=== PATIENT | female | born 1960 | race Two or more races ===

== ENCOUNTER 2016-10-22 20:23 | Emergency (ER) | payer SELFPAY ==
[2016-10-22 21:49] LABS: URINE BILIRUBIN NEGATIVE (NEGATIVE); URINE BLOOD NEGATIVE (NEGATIVE); URINE GLUCOSE (UA) NEGATIVE (NEGATIVE); URINE KETONE NEGATIVE (NEGATIVE); URINE PROTEIN NEGATIVE (NEGATIVE); URINE UROBILINOGEN 0.2 E.U./dL (0.2 - 1.0)
[2016-10-22 21:51] LABS: URINE COLOR STRAW
[2016-10-22 21:52] LABS: URINE BACTERIA NONE SEEN /hpf (NONE SEEN); URINE EPITHELIAL CELLS NONE SEEN /lpf (FEW); URINE RBC NONE SEEN /hpf (0-5); URINE WBC NONE SEEN /hpf (0-5)
--- NOTE | 2016-10-22 22:16 | ED Physician Chart ---
Chief Complaint/HPI - Patient Information Date Seen:: 10/22/16 Time Seen:: 22:10 Chief Complaint:: urinary discomfort History of Present Illness:: pt was dxd w a uti 1.5 wks ang and pmd rxd bactrim ds. pt had mild dysuria and u frequency at that time. she doesnt like pills and so didnt take the bactrim regularly...she felt worse x 2d and decided to restart the bactrim. she now feels only u freq no dysuria. no abd p. no back p. no cp. no uri sx. pt otw fairly healthy no chidi pmh she has not had fevers. no n/v/d. pt has not been sexually active in yrs. no vag d/c. no perineal rash. Allergies:: Allergies Allergy/AdvReac Type Severity Reaction Status Date / Time No Known Allergies Allergy Verified 10/22/16 20:45 Vitals:: Vital Signs - 8 hr 10/22/16 10/22/16 20:35 21:57 Temp 98.1 F 97.9 F HR 68 61 RR 18 17 BP 132/64 129/67 O2 Sat % 99 99 Historian:: Patient Review of Systems - Review of Systems General/Constitutional: No fever, No chills, No weight loss, No weakness, No diaphoresis, No edema, No loss of appetite Skin: No skin lesions, No rash, No bruising Head: No headache, No light-headedness Eyes: No loss of vision, No pain, No diplopia ENT: No earache, No nasal drainage, No sore throat, No tinnitus Neck: No neck pain, No swelling, No thyromegaly, No stiffness, No mass noted Cardio Vascular: No chest pain, No palpitations, No PND, No orthopnea, No edema Pulmonary: No SOB, No cough, No sputum, No wheezing GI: No nausea, No vomiting, No diarrhea, No pain, No melena, No hematochezia, No constipation, No hematemesis G/U: No dysuria, Frequency, No hematuria [employer]: No vaginal discharge, No abnormal vaginal bleed, No contraction Musculoskeletal: No bone or joint pain, No back pain, No muscle pain Endocrine: No polyuria, No polydipsia Psychiatric: No prior psych history, No depression, No anxiety, No suicidal ideation Hematopoietic: No bruising, No lymphadenopathy Allergic/Immuno: No urticaria, No angioedema Neurological: No syncope, No focal symptoms, No weakness, No paresthesia, No headache, No seizure, No dizziness, No confusion, No vertigo Past Medical History - Past Medical History Past Medical History: No significant medical hx, Other (uti) Social History: Non Smoker Medication: Reviewed Family Medical History - Family Member Mother History Unknown: Yes Ethnicity: Non- Physical Exam - Physical Examination General/Constitutional: Awake, Well-developed, well-nourished, Alert, No distress, GCS 15, Non-toxic appearing, Ambulatory Other Gen/Cons comments:: no distress. stable. nontoxic. alert. wn/wh. Head: Atraumatic Eyes: Lids, conjuctiva normal, PERRL, EOMI Skin: Nl inspection, No rash, No skin lesions, No ecchymosis, Well hydrated, No lymphadenopathy ENMT: External ears, nose nl, Nasal exam nl, Lips, teeth, gums nl Neck: Nontender, Full ROM w/o pain, No JVD, No nuchal rigidity, No bruit, No mass, No stridor Respiratory: Nl effort/Exclusion, Clear to Auscultation, No Wheeze/Rhonchi/Rales Cardio Vascular: RRR, No murmur, gallop, rubs, NL S1 S2 GI: No tenderness/rebounding/guarding, No organomegaly, No hernia, Normal BS's, Nondistended, No mass/bruits, No McBurney tenderness Other GI comments:: nontender. no masses. pos nabs. no rebound. no aaa. : No CVA tenderness Extremities: No tenderness or effusion, Full ROM, normal strength in all extremities, No edema, Normal digits & nails Neuro/Psych: Alert/oriented, DTR's symmetric, Normal sensory exam, Normal motor strength, Judgement/insight normal, Mood normal, Normal gait, No focal deficits Misc: normal gait, Normal back, No paraspinal tenderness Labs/Radiology/EKG Results - Lab Results Results: Laboratory Tests 10/22/16 20:35 Urine Source CLEAN CATCH Urine Color STRAW Urine Clarity CLEAR Urine pH 6.0 Ur Specific [place] 1.005 Urine Protein NEGATIVE Urine Glucose (UA) NEGATIVE Urine Ketones NEGATIVE Urine Blood NEGATIVE Urine Nitrate NEGATIVE Urine Bilirubin NEGATIVE Urine Urobilinogen 0.2 Ur Leukocyte Esterase NEGATIVE Urine RBC NONE SEEN Urine WBC NONE SEEN Ur Epithelial Cells NONE SEEN Urine Bacteria NONE SEEN ED Septic Shock - . Is Septic Shock (SBP<90, OR Lactate>4 mmol\L) present?: No - <6hrs of presentation: Vital Signs: Vital Signs - 8 hr 10/22/16 10/22/16 20:35 21:57 Temp 98.1 F 97.9 F HR 68 61 RR 18 17 BP 132/64 129/67 O2 Sat % 99 99 Reassessment (Disposition) - Reassessment Reassessment:: unclear why pt has urine dscomfort...may be psychologic from tx noncompliance.. will run u cx and advise pt to drink fluids and cranberry and see pmd in 3 d for u cx result review. this does not sound likely for STD ...d/w pt.. no candidial rash..per pt. pt referred to PMD. may ret if worse. Reassessment Condition:: Unchanged - Diagnosis Diagnosis:: urinary discomfort of uncertain etiology - Aftercare/Follow up Instructions Aftercare/Follow-Up Instructions:: Counseled pt regarding lab results/diagnosis & need follow up - Patient Disposition Discharge/Transfer:: Home Condition at Disposition:: Unchanged ED Discharge Plan - Patient Disposition Admit/Discharge/Transfer: PT DISCHARGED HOME Instructions: Urinary Frequency Additional Instructions: follow up with your primary medical doctor FLAQUITO drink plenty of water to keep urine clear or pale yellow
== END 2016-10-22 22:00 | disposition home or self-care (01) ==
LOC: ER 20:23
DX: R39.89 Other symptoms and signs involving the genitourinary system (principal)
CPT/HCPCS: 81001-TC; Z7502

== ENCOUNTER 2016-12-23 16:32 | Emergency (ER) | payer BC ==
[2016-12-23 17:06] VITALS: BP 140/60
--- NOTE | 2016-12-23 17:43 | ED Physician Chart ---
Chief Complaint/HPI - Patient Information Date Seen:: 12/23/16 Time Seen:: 17:07 Chief Complaint:: HEADACHE History of Present Illness:: THIS IS A 56 YO FEMALE WITH A HEADACHE FOR TWO MONTHS BUT SHE ALSO STARTED TO GET VERY DIZZY TODAY. SHE STATES THAT SHE HAS NOT HAD ANY RECENT HEAD TRAUMA. SHE DENIES DIABETES, HYPERTENSION AND HEART PROBLEMS. SHE DENIES ANY RECENT FEVER OR COUGH. SHE THAT THE PAIN IS 4/10 AND THE PAIN SKIPS AROUND ALL OVER THE HEAD. SHE DENIES SMOKING AND DRINKING. Allergies:: Allergies Allergy/AdvReac Type Severity Reaction Status Date / Time No Known Allergies Allergy Verified 10/22/16 20:45 Vitals:: Vital Signs - 8 hr 12/23/16 17:06 Temp 98.4 F HR 68 RR 17 BP 140/60 O2 Sat % 97 Historian:: Patient Review:: Nurse's Note Reviewed Review of Systems - Review of Systems General/Constitutional: No fever, No chills, No weight loss, No weakness, No diaphoresis, No edema, No loss of appetite Skin: No skin lesions, No rash, No bruising Head: No headache, No light-headedness Eyes: No loss of vision, No pain, No diplopia ENT: No earache, No nasal drainage, No sore throat, No tinnitus Neck: No neck pain, No swelling, No thyromegaly, No stiffness, No mass noted Cardio Vascular: No chest pain, No palpitations, No PND, No orthopnea, No edema Pulmonary: No SOB, No cough, No sputum, No wheezing GI: No nausea, No vomiting, No diarrhea, No pain, No melena, No hematochezia, No constipation, No hematemesis G/U: No dysuria, No frequency, No hematuria Musculoskeletal: No bone or joint pain, No back pain, No muscle pain Endocrine: No polyuria, No polydipsia Psychiatric: No prior psych history, No depression, No anxiety, No suicidal ideation Hematopoietic: No bruising, No lymphadenopathy Allergic/Immuno: No urticaria, No angioedema Neurological: No syncope, No focal symptoms, No weakness, No paresthesia, Headache, No seizure, No dizziness, No confusion, No vertigo Past Medical History - Past Medical History Obtainable: Yes Past Medical History: Arthritis Family History: Heart disease (MOTHER), Diabetes Melitus Social History: Non Smoker, No Alcohol, No Drug Use Surgical History: None Psychiatricy History: None Medication: Reviewed Family Medical History - Family Member Mother History Unknown: Yes Name:: SENDY BAKER Age: 86 Ethnicity: Non- Living Status: Hx Family Coronary Artery Disease: Yes Hx Family Diabetes: Yes Physical Exam - Physical Examination General/Constitutional: Awake, Well-developed, well-nourished, Alert, No distress, GCS 15, Non-toxic appearing, Ambulatory Head: Atraumatic Eyes: Lids, conjuctiva normal, PERRL, EOMI Skin: Nl inspection, No rash, No skin lesions, No ecchymosis, Well hydrated, No lymphadenopathy ENMT: External ears, nose nl, Nasal exam nl, Lips, teeth, gums nl Neck: Nontender, Full ROM w/o pain, No JVD, No nuchal rigidity, No bruit, No mass, No stridor Respiratory: Nl effort/Exclusion, Clear to Auscultation, No Wheeze/Rhonchi/Rales Cardio Vascular: RRR, No murmur, gallop, rubs, NL S1 S2 GI: No tenderness/rebounding/guarding, No organomegaly, No hernia, Normal BS's, Nondistended, No mass/bruits, No McBurney tenderness : No CVA tenderness Extremities: No tenderness or effusion, Full ROM, normal strength in all extremities, No edema, Normal digits & nails Neuro/Psych: Alert/oriented, DTR's symmetric, Normal sensory exam, Normal motor strength, Judgement/insight normal, Mood normal, Normal gait, No focal deficits Misc: normal gait, Normal back, No paraspinal tenderness Labs/Radiology/EKG Results - Lab Results Results: Laboratory Results - last 24 hr 12/23/16 12/23/16 12/23/16 17:30 17:30 17:30 WBC 6.8 RBC 4.45 Hgb 13.3 Hct 39.6 MCV 89.0 MCH 30.0 MCHC Differential 33.7 RDW 11.2 L Plt Count 255 MPV 8.2 Neutrophils % 69.8 Lymphocytes % 22.1 Monocytes % 5.4 Eosinophils % 1.9 Basophils % 0.8 PT 10.1 INR 0.97 Sodium Potassium Chloride Carbon Dioxide Anion Gap BUN Creatinine Est GFR ( Amer) Est GFR (Non-Af Amer) BUN/Creatinine Ratio Glucose Calcium Total Bilirubin AST ALT Alkaline Phosphatase Troponin I Total Protein Albumin Globulin Albumin/Globulin Ratio Triglycerides 131 Cholesterol 188 LDL Cholesterol Direct 105 HDL Cholesterol 56 TSH 12/23/16 12/23/16 12/23/16 17:30 17:30 17:35 WBC RBC Hgb Hct MCV MCH MCHC Differential RDW Plt Count MPV Neutrophils % Lymphocytes % Monocytes % Eosinophils % Basophils % PT INR Sodium 138 Potassium 3.4 L Chloride 106 Carbon Dioxide 30.0 Anion Gap 5.4 L BUN 17 Creatinine 0.8 Est GFR ( Amer) > 60.0 Est GFR (Non-Af Amer) > 60.0 BUN/Creatinine Ratio 21.3 Glucose 88 Calcium 9.9 Total Bilirubin 0.5 AST 18 ALT 14 Alkaline Phosphatase 76 Troponin I < 0.01 L Total Protein 7.8 Albumin 4.7 Globulin 3.1 Albumin/Globulin Ratio 1.5 Triglycerides Cholesterol LDL Cholesterol Direct HDL Cholesterol TSH 0.47 - Radiology Results Results: ct scan of the head and neck they were both normal - EKG Interpretations EKG Time:: 17:34 Rhythm: NSR Parks: RIGHT Rate: 63 ED Septic Shock - . Is Septic Shock (SBP<90, OR Lactate>4 mmol\L) present?: No - <6hrs of presentation: Vital Signs: Vital Signs - 8 hr 12/23/16 17:06 Temp 98.4 F HR 68 RR 17 BP 140/60 O2 Sat % 97 Reassessment (Disposition) - Reassessment Reassessment Condition:: Unchanged - Diagnosis Diagnosis:: headache dizzy - Aftercare/Follow up Instructions Aftercare/Follow-Up Instructions:: Counseled pt regarding lab results/diagnosis & need follow up, Refer to Discharge Instructions, Counseled pt & family regarding lab results/diagnosis & need follow up - Patient Disposition Discharge/Transfer:: Home Condition at Disposition:: Unchanged ED Discharge Plan - Patient Disposition Admit/Discharge/Transfer: PT DISCHARGED HOME Condition at Disposition: Unchanged
[2016-12-23 17:49] LABS: % BASOPHILS 0.8 % (0.0-2.0); % EOSINOPHILS 1.9 % (0.0-5.0); % LYMPHOCYTES 22.1 % (20.0-50.0); % MONOCYTES 5.4 % (2.0-10.0); % NEUTROPHILS 69.8 % (40.0-80.0); HEMATOCRIT 39.6 % (35.0-45.0); HEMOGLOBIN 13.3 gm/dL (11.7-15.5); MEAN CORPUSCULAR HGB CONC 33.7 pg (28.0-36.0); MEAN PLATELET VOLUME 8.2 fl; NEUTROPHILE ABSOLUTE 4.7 Th/cmm (1.8-8.0); PLATELET COUNT 255 Th/cmm (150-400); RED BLOOD COUNT 4.45 Mil/cmm (3.80-5.10); RED CELL DISTRIBUTION WIDTH 11.2 % (11.5-20.0); WHITE BLOOD COUNT 6.8 Th/cmm (4.8-10.8)
[2016-12-23 18:03] LABS: INR 0.97 (0.5-1.4); PROTHROMBIN TIME (TEST) 10.1 SECONDS (9.5-11.5)
[2016-12-23 18:12] LABS: ALB/GLOB RATIO 1.5 (1.0-1.8); ALKALINE PHOSPHATASE 76 U/L (34-104); ANION GAP 5.4 (7.0-16.0); BILIRUBIN,TOTAL 0.5 mg/dL (0.3-1.0); BUN - UREA NITROGEN 17 mg/dL (7-25); BUN/CREATININE RATIO 21.3; CALCIUM SERUM 9.9 mg/dL (8.6-10.3); CHLORIDE 106 mEq/L (98-107); CREATININE - SERUM 0.8 mg/dL (0.6-1.2); GLUCOSE 88 mg/dL (70-105); POTASSIUM SERUM 3.4 mEq/L (3.5-5.1); SGOT 18 U/L (13-39); SGPT/ALT 14 U/L (7-52); SODIUM SERUM 138 mEq/L (136-145)
[2016-12-23 18:43] LABS: CHOLESTEROL 188 mg/dL (<200); TRIGLYCERIDES 131 mg/dL (<150)
[2016-12-23 18:54] LABS: URINE BILIRUBIN NEGATIVE (NEGATIVE); URINE COLOR YELLOW; URINE GLUCOSE (UA) NEGATIVE (NEGATIVE); URINE KETONE NEGATIVE (NEGATIVE)
[2016-12-23 18:55] LABS: URINE BLOOD TRACE (NEGATIVE); URINE PH 8.5; URINE PROTEIN NEGATIVE (NEGATIVE)
[2016-12-23 18:56] LABS: URINE BACTERIA NONE SEEN /hpf (NONE SEEN); URINE EPITHELIAL CELLS NONE SEEN /lpf (FEW); URINE RBC 0-2 /hpf (0-5)
--- NOTE | 2016-12-24 10:14 | Diagnostic Imaging Report ---
INDICATION: Altered level of consciousness. Technique: Serial axial images were performed from the skull base to the vertex using 5 mm slice thickness and interval. CTDI is 29mGy. [id number] FINDINGS: Ventricular size is normal. No areas of hemorrhage or edema in the brain or brainstem. No extra axial fluid collections. No bony abnormalities. IMPRESSION: No acute intracranial pathology.
--- NOTE | 2016-12-26 11:38 | Diagnostic Imaging Report ---
Indication: Neck pain Technique: Serial axial images were performed through spine and then reformatted in sagital and coronal planes. CTDI [id number]. [id number] Findings: Reversal of the normal cervical lordotic curvature. No fracture or dislocation. There is disk space narrowing with osteophyte formation at C3-4, C4-5, C5-6, and C6-7. Osteophytes project anteriorly at these levels. At C3-4 focal cyst right paracentral 4 mm disc protrusion. C4-5 no narrowing of the central canal and neural foramina. C5-6 diffuse right paracentral 3 mm disc protrusion. Bilateral foraminal narrowing by osteophytes. C6-7 right lateral foraminal narrowing by osteophytes. Impression: Moderately severe degenerative changes. At C3-4 focal cyst right paracentral 4 mm disc protrusion. C4-5 no narrowing of the central canal and neural foramina. C5-6 diffuse right paracentral 3 mm disc protrusion. Bilateral foraminal narrowing by osteophytes. C6-7 right lateral foraminal narrowing by osteophytes.
== END 2016-12-23 19:00 | disposition home or self-care (01) ==
LOC: ER 16:32
DX: R51 Headache (principal); R42 Dizziness and giddiness
CPT/HCPCS: 36415-UA; 70450-TC; 72125-TC; 80053-TC; 80061-TC; 81001-TC; 84443-TC; 84484-TC; 85025-TC; 85610-TC; 86592-TC; 93005